=== PATIENT | male | born 1960 | race Two or more races ===

== ENCOUNTER 2019-01-05 13:55 | Inpatient (IN) | payer OTHER ==
[2019-01-05 18:31] VITALS: BMI 20.5
--- NOTE | 2019-01-05 19:07 | HP ---
COWS - Scale Resting Pulse: 0= [place] 80 or Below Sweatin= Chills/Flushing Restless Observation: 3= Extraneous Movement Pupil Size: 0= Normal to Room Light Bone or Joint Aches: 1= Mild Discomfort Runny Nose/ Eye Tearin= None GI Upset > 30mins: 0= None Tremor Observation: 2= Slight Tremor Visible Yawning Observation: 0= None Anxiety or Irritability: 2=Irritable/Anxious Goose Flesh Skin: 0=Smooth Skin COWS Score: 9 CIWA Score - Admission Criteria OASAS Guidelines: Admission for Medically Managed Detox: Requires at least one of the followin. CIWA greater than 12 2. Seizures within the past 24 hours 3. Delirium tremens within the past 24 hours 4. Hallucinations within the past 24 hours 5. Acute intervention needed for co occurring medical disorder 6. Acute intervention needed for co occurring psychiatric disorder 7. Severe withdrawal that cannot be handled at a lower level of care (continued vomiting, continued diarrhea, abnormal vital signs) requiring intravenous medication and/or fluids 8. Admission ROS [facility] Chief Complaint: detox heroin and cocaine Allergies/Adverse Reactions: Allergies Allergy/AdvReac Type Severity Reaction Status Date / Time No Known Allergies Allergy Verified 01/05/19 18:23 History of Present Illness: 58M with no significant PMHx presenting to [facility] for detox from heroin and cocaine. Taking heroin(IV) 10bags, speedballing with cocaine(IV) for 3ys. Last heroin, 2bags at ~0600. Cocaine(IV) 1gm ~$30, every 2d. Last cocaine was yesterday night. Uses clean needles, never shares. Denies bacteremia, abscesses , HepC, HIV. Distant MJ. Social EtOH. Denies benzo, tobacco. Started drugs at 25yo, on/off sobriety, with longest stretch for 3.5ys. Has had multiple detox- rehab([facility], [facility] 2011, etc). Never had methadone, suboxone clinics. Has been incarcerated multiple times for shoftlifting, serving short 90d sentences. Lives in [facility] [facility] with and son. 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 - Ebola screening Have you traveled outside of the country in the last 21 days: No (N) Have you had contact with anyone from an Ebola affected area: No Do you have a fever: No - Review of Systems Constitutional: Unintentional Wgt. Loss (20lbs in 2ys) EENT: denies: Blurred Vision, Double Vision, Difficulty Swallowing Respiratory: denies: Cough, Shortness of Breath, Productive cough Cardiac: denies: Chest Pain, Lightheadedness, Palpitations GI: denies: Abdominal Distended, Constipated, Diarrhea, Nausea, Vomiting : denies: Dysuria, Frequency Musculoskeletal: reports: Back Pain Neuro: denies: Headache, Seizure, Dizziness Psychiatric: reports: Orientated x3 Patient History - Patient Medical History Hx Asthma: No Hx Chronic Obstructive Pulmonary Disease (COPD): No Hx Cardiac Disorders: No Hx Hypertension: No Hx Seizures: No Hx Diabetes: No Hx Gastrointestinal Disorders: No Hx Genitourinary Disorders: No Hx Sexually Transmitted Disorders: No Hx Renal Disease (ESRD): No Hx Depression: No Hx Suicide Attempt: No Hx Schizophrenia: No - Patient Surgical History Past Surgical History: No Hx Neurologic Surgery: No Hx Cataract Extraction: No Hx Cardiac Surgery: No Hx Lung Surgery: No Hx Breast Surgery: No Hx Breast Biopsy: No Hx Abdominal Surgery: No Hx Appendectomy: No Hx Cholecystectomy: No Hx Genitourinary Surgery: No Hx Section: No - PPD History Date: 10/29/11 - Smoking Cessation Smoking history: Never smoked - Substance & Tx. History Hx Alcohol Use: Yes (social) Substance Use Type: Cocaine, Heroin, Marijuana, Opiates - Substances abused Heroin Substance route: Injection Frequency: Daily Amount used: 8 bags/ close to 100 dollars Age of first use: 25 Date of last use: 01/05/19 Cocaine Substance route: Injection Frequency: Daily Amount used: 3 bags Age of first use: 25 Date of last use: 01/05/19 Family Disease History - Family Disease History Other Family History: none Admission Physical Exam BHS - Vital Signs Vital Signs: Vital Signs - 24 hr 01/05/19 18:22 Temperature 100.6 F H Pulse Rate 79 Respiratory 16 Rate Blood Pressure 106/62 - Physical General Appearance: Yes: Thin, Anxious HEENTM: No: Pale Conjunctivae R, Pale Conjunctivae L, Scleral Ictenus R, Scleral Ictenus L, Thrush Respiratory: Yes: Chest Non-Tender, Lungs Clear, No Respiratory Distress, No Accessory Muscle Use Neck: Yes: Supple, Trachea in good position Cardiology: Yes: Regular Rate, S1, S2. No: Bradycardia, Tachycardia Abdominal: Yes: Soft. No: Distended, Guarding, Rebound, Tenderness Back: Yes: Normal Inspection Musculoskeletal: Yes: full range of Motion Extremities: Yes: Other (LUE with ventral forearm with firm indurated, nonTTP, nonerythematous blood vessel. RUE with ventral forearm with firm indurated, nonTTP, nonerythematous blood vessel) Neurological: Yes: Fully Oriented, Alert Integumentary: Yes: Dry, Warm Breathalyzer - Breathalyzer Breathalyzer: 0 Urine Drug Screen - Test Device Lot number: [id number] Expiration date: 09/29/20 - Control Is test valid?: Yes - Results Drug screen NEGATIVE: No Urine drug screen results: MARSHA-Cocaine, FEN-Fentanyl, MOP-Opiates, OXY-Oxycodone , MTD-Methadone Inpatient Rehab Admission - Rehab Decision to Admit Inpatient rehab admission?: No
--- NOTE | 2019-01-05 19:36 | PN ---
"Teaching Attending Note Name of Resident: Edward Adkins ATTENDING PHYSICIAN STATEMENT I saw and evaluated the patient. I reviewed the resident's note and discussed the case with the resident. I agree with the resident's findings and plan as documented. SUBJECTIVE:58 y.o. pt requesting detox from opiate use , reports IVDU 10 bags since age 25 , latest use this morning 2 bags , current symptoms as above. Cocaine : IVDU 1 gr every other day . denies prior abscess , OD . Intermittent sobriety , longest 3 1/2 years . denies other illicits or ETOH denies tobacco use OBJECTIVE: wnwd . COWS 9 Search Terms: denilson renteriado, 1960 Search Date: 01/05/2019 07:36:32 PM This report was requested by: Marlee Pringle | Reference #: [id number] There are no results for the search terms that you entered. Vital Signs - 24 hr 01/05/19 18:22 Temperature 100.6 F H Pulse Rate 79 Respiratory 16 Rate Blood Pressure 106/62 ASSESSMENT AND PLAN: Opioid dependence - Methadone detox . Cocaine dependence ."
[2019-01-05] MEDS ORDERED: IBUPROFEN 400 MG TABLET (FP) PO PRN (19:45)
[2019-01-05] MEDS ORDERED: MAGNESIUM HYDROX 2400MG/30ML ORAL SUSPENSION 30 ML CUP PO PRN (19:45)
[2019-01-05] MEDS ORDERED: METHADONE HCL 10 MG TABLET (FOR DETOX USE ONLY) PO ONE (19:45)
[2019-01-05] MEDS ORDERED: MAGNESIUM CITRATE 300 ML BOTTLE PO PRN (19:45)
[2019-01-05] MEDS ORDERED: MENTHOL/PHENOL 1 EACH UD MM PRN (19:45)
[2019-01-05] MEDS ORDERED: BISMUTH SUBSALICYLATE 524 MG/30 ML UD PO PRN (19:45)
[2019-01-05] MEDS ORDERED: METHOCARBAMOL 500 MG TABLET PO PRN (19:45)
[2019-01-05] MEDS ORDERED: MAG HYDROX/AL HYDROX/SIMETH 30 ML UNIT-DOSE CUP PO PRN (19:45)
[2019-01-05] MEDS ORDERED: cloNIDine HCL 0.1 MG TABLET PO PRN (19:45)
[2019-01-05] MEDS ORDERED: ACETAMINOPHEN 325 MG TABLET (FP) PO PRN ×2 (19:45)
[2019-01-05] MEDS: THIAMINE HCL 100 MG TABLET (FP) PO SCH (21:26)
[2019-01-05] MEDS: MELATONIN 5 MG TABLETS PO PRN (21:28)
[2019-01-05] MEDS: BACITRACIN/POLYMYXIN B SULFATE 15 GM TUBE TP SCH (21:29)
--- NOTE | 2019-01-05 23:08 | PN ---
BHS Progress Note Note: Abnormal EKG noted. Patient denies CP/SOB. Earlier HPI reviewed. Patient with hx Cocaine IV. Will repeat EKG in am.
[2019-01-06] MEDS ORDERED: METHADONE HCL 10 MG TABLET (FOR DETOX USE ONLY) ONE (09:57)
[2019-01-06] MEDS ORDERED: METHADONE HCL 5 MG TABLET (FOR DETOX USE ONLY) ONE (09:58)
[2019-01-06] MEDS ORDERED: METHADONE (DETOX) 20 MG, METHADONE (DETOX) 5 MG PO ONE (10:00)
[2019-01-06 10:22] LABS: HEMATOCRIT 29.7 % (35.4-49); MCH 28.6 pg (25.7-33.7); MCHC 33.6 g/dl (32.0-35.9); MEAN CELL VOLUME 85.1 fl (80-96); MEAN PLT VOLUME 8.1 fl (7.5-11.1); PLATELET COUNT 188 K/MM3 (134-434); RBC 3.49 M/mm3 (4.00-5.60); RDW 15.4 % (11.9-15.9); WHITE BLOOD COUNT 6.1 K/mm3 (4.0-10.0)
[2019-01-06] MEDS: BACITRACIN/POLYMYXIN B SULFATE 15 GM TUBE TP SCH ×2 (10:22→22:28)
[2019-01-06] MEDS: PRENATAL VITAMINS W/ FOLIC ACID TABLET (FP) PO SCH (10:23)
[2019-01-06] MEDS: SULFAMETHOXAZOLE/TRIMETHOPRIM 800MG/160MG D.S. TABLET PO SCH (10:23)
[2019-01-06 10:30] LABS: ALBUMIN 2.7 g/dl (3.4-5.0); ALK PHOS > 1000 U/L (45-117); ANION GAP 4 MMOL/L (8-16); BILIRUBIN,TOTAL 1.7 mg/dL (0.2-1); CHLORIDE 101 mmol/L (98-107); CO2 30 mmol/L (21-32); CREATININE 1.1 mg/dL (0.55-1.3); GLUCOSE,RANDOM 76 mg/dL (74-106); POTASSIUM 4.4 mmol/L (3.5-5.1); SGOT/AST 49 U/L (15-37); SGPT/ALT 38 U/L (13-61); SODIUM 135 mmol/L (136-145); TOT PROT 8.9 g/dl (6.4-8.2)
--- NOTE | 2019-01-06 11:34 | PN ---
BHS COWS - Scale Resting Pulse: 0= [place] 80 or Below Sweatin= Chills/Flushing Restless Observation: 1= Difficult to Sit Still Pupil Size: 0= Normal to Room Light Bone or Joint Aches: 4=Acute Joint/Muscle Pain Runny Nose/ Eye Tearin= None GI Upset > 30mins: 0= None Tremor Observation of Outstretched Hands: 0= None Yawning Observation: 1= 1-2x During Session Anxiety or Irritability: 2=Irritable/Anxious Goose Flesh Skin: 0=Smooth Skin COWS Score: 9 S Progress Note (SOAP) Subjective: c/o anxiety, irritability, sweats, and muscle aches. Objective: 01/06/19 11:34 Vital Signs 01/06/19 01/06/19 06:00 09:13 Temperature 99.0 F 97.3 F L Pulse Rate 78 70 Respiratory 16 18 Rate Blood Pressure 123/61 106/59 L Lab Results WBC 6.1 K/mm3 (4.0-10.0) 01/06/19 08:00 RBC 3.49 M/mm3 (4.00-5.60) L 01/06/19 08:00 Hgb 10.0 GM/dL (11.7-16.9) L 01/06/19 08:00 Hct 29.7 % (35.4-49) L D 01/06/19 08:00 MCV 85.1 fl (80-96) 01/06/19 08:00 MCHC 33.6 g/dl (32.0-35.9) 01/06/19 08:00 RDW 15.4 % (11.9-15.9) D 01/06/19 08:00 Plt Count 188 K/MM3 (134-434) 01/06/19 08:00 Sodium 135 mmol/L (136-145) L 01/06/19 08:00 Potassium 4.4 mmol/L (3.5-5.1) 01/06/19 08:00 Chloride 101 mmol/L (98-107) 01/06/19 08:00 Carbon Dioxide 30 mmol/L (21-32) 01/06/19 08:00 Anion Gap 4 MMOL/L (8-16) L 01/06/19 08:00 BUN 16.0 mg/dL (7-18) 01/06/19 08:00 Creatinine 1.1 mg/dL (0.55-1.3) 01/06/19 08:00 Random Glucose 76 mg/dL (74-106) 01/06/19 08:00 Calcium 9.0 mg/dL (8.5-10.1) 01/06/19 08:00 Labs noted. Assessment: 01/06/19 11:34 AOX3, in no acute respiratory distress. Full ROM, ambulating in the unit. Withdrawal symptoms. Plan: continue detox.
--- NOTE | 2019-01-06 15:09 | PN ---
BHS Progress Note Note: Pt's repeat EKG is normal. No other c/o noted.
[2019-01-06] MEDS: FERROUS SO4 325 MG TABLET (FP) PO SCH (17:05)
[2019-01-06] MEDS: THIAMINE HCL 100 MG TABLET (FP) PO SCH (22:28)
[2019-01-06] MEDS: MELATONIN 5 MG TABLETS PO PRN (22:29)
[2019-01-07] MEDS: FERROUS SO4 325 MG TABLET (FP) PO SCH ×3 (07:12→17:35)
[2019-01-07] MEDS ORDERED: METHADONE HCL 10 MG TABLET (FOR DETOX USE ONLY) PO ONE (10:00)
[2019-01-07] MEDS: PRENATAL VITAMINS W/ FOLIC ACID TABLET (FP) PO SCH (10:33)
[2019-01-07] MEDS: SULFAMETHOXAZOLE/TRIMETHOPRIM 800MG/160MG D.S. TABLET PO SCH (10:33)
[2019-01-07] MEDS: BACITRACIN/POLYMYXIN B SULFATE 15 GM TUBE TP SCH ×2 (10:34→21:43)
[2019-01-07] MEDS: hydrOXYzine PAMOATE 25 MG CAPSULE (FP) PO PRN ×2 (10:37→21:42)
[2019-01-07] MEDS: ASCORBIC ACID 500 MG TABLET (FP) PO SCH (11:00)
--- NOTE | 2019-01-07 16:24 | PN ---
BHS COWS - Scale Resting Pulse: 0= [place] 80 or Below Sweatin= Chills/Flushing Restless Observation: 1= Difficult to Sit Still Pupil Size: 0= Normal to Room Light Bone or Joint Aches: 1= Mild Discomfort Runny Nose/ Eye Tearin= Runny Nose/Eyes GI Upset > 30mins: 2= Nausea/Diarrhea Tremor Observation of Outstretched Hands: 2= Slight Tremor Visible Yawning Observation: 0= None Anxiety or Irritability: 2=Irritable/Anxious Goose Flesh Skin: 0=Smooth Skin COWS Score: 11 BHS Progress Note (SOAP) Subjective: Runny nose, anxious, interrupted sleep, sweating, chills, tremor Objective: 01/07/19 16:20 Last Vital Signs Temp Pulse Resp BP Pulse Ox 98.8 F 65 16 118/64 01/07/19 13:10 01/07/19 13:10 01/07/19 13:10 01/07/19 13:10 Laboratory Tests 01/06/19 01/06/19 01/06/19 08:00 08:00 08:00 WBC 6.1 RBC 3.49 L Hgb 10.0 L Hct 29.7 L D MCV 85.1 MCH 28.6 MCHC 33.6 RDW 15.4 D Plt Count 188 MPV 8.1 Sodium 135 L Potassium 4.4 Chloride 101 Carbon Dioxide 30 Anion Gap 4 L BUN 16.0 Creatinine 1.1 Est GFR (CKD-EPI)AfAm 86.52 Est GFR (CKD-EPI)NonAf 74.65 Random Glucose 76 Calcium 9.0 Total Bilirubin 1.7 H AST 49 H ALT 38 Alkaline Phosphatase > 1000 H Total Protein 8.9 H Albumin 2.7 L RPR Titer Nonreactive Labs reviewed: mild anemia noted; abnormal LFTs (total bilirubin, AST, Alk phos , total protein) Assessment: 01/07/19 16:23 Withdrawal sxs Noted with anemia and elevated LFTs Plan: Continue detox Encouraged PO water intake Anemia: continue iron supplement Elevated LFTs: could be r/t IVDU, repeat CMP
--- NOTE | 2019-01-07 17:16 | EKG ---
Test Reason : Blood Pressure : / mmHG Vent. Rate : 065 BPM Atrial Rate : 065 BPM P-R Int : 138 ms QRS Dur : 088 ms QT Int : 432 ms P-R-T Axes : -15 000 020 degrees QTc Int : 449 ms NORMAL SINUS RHYTHM NORMAL ECG WHEN COMPARED WITH ECG OF 05-JAN-2019 20:58, SINUS RHYTHM HAS REPLACED ECTOPIC ATRIAL RHYTHM ST NO LONGER DEPRESSED IN INFERIOR LEADS Confirmed by TRAMAINE AUGUSTE MD ([id number]) on 01/07/2019 5:15:49 PM Referred By: Confirmed By:TRAMAINE AUGUSTE MD
--- NOTE | 2019-01-07 17:18 | EKG ---
Test Reason : Blood Pressure : / mmHG Vent. Rate : 073 BPM Atrial Rate : 073 BPM P-R Int : 160 ms QRS Dur : 086 ms QT Int : 376 ms P-R-T Axes : 262 023 003 degrees QTc Int : 414 ms UNUSUAL P AXIS, POSSIBLE ECTOPIC ATRIAL RHYTHM ABNORMAL ECG NO PREVIOUS ECGS AVAILABLE Confirmed by TRAMAINE AUGUSTE MD ([id number]) on 01/07/2019 5:17:59 PM Referred By: Confirmed By:TRAMAINE AUGUSTE MD
[2019-01-07] MEDS: THIAMINE HCL 100 MG TABLET (FP) PO SCH (21:42)
[2019-01-07] MEDS: MELATONIN 5 MG TABLETS PO PRN (21:42)
[2019-01-08] MEDS: FERROUS SO4 325 MG TABLET (FP) PO SCH ×3 (08:10→18:01)
--- NOTE | 2019-01-08 09:36 | PN ---
BHS COWS - Scale Resting Pulse: 0= [place] 80 or Below Sweatin= Chills/Flushing Restless Observation: 1= Difficult to Sit Still Pupil Size: 1= Pupils >than Normal Bone or Joint Aches: 1= Mild Discomfort Runny Nose/ Eye Tearin= Runny Nose/Eyes GI Upset > 30mins: 2= Nausea/Diarrhea Tremor Observation of Outstretched Hands: 1= Tremor [place], Not Seen Yawning Observation: 0= None Anxiety or Irritability: 0= None Goose Flesh Skin: 0=Smooth Skin COWS Score: 9 BHS Progress Note (SOAP) Subjective: Patient having mild to moderate withdrawal symptoms. Objective: 01/08/19 09:36 BP:97/53 P:58 R:17 T:98.1 Laboratory 01/06/19 01/06/19 01/06/19 08:00 08:00 08:00 WBC 6.1 K/mm3 K/mm3 (4.0-10.0) RBC 3.49 M/mm3 L M/mm3 (4.00-5.60) Hgb 10.0 GM/dL L GM/dL (11.7-16.9) Hct 29.7 % L D % (35.4-49) MCV 85.1 fl fl (80-96) MCH 28.6 pg pg (25.7-33.7) MCHC 33.6 g/dl g/dl (32.0-35.9) RDW 15.4 % D % (11.9-15.9) Plt Count 188 K/MM3 K/MM3 (134-434) MPV 8.1 fl fl (7.5-11.1) Sodium 135 mmol/L L mmol/L (136-145) Potassium 4.4 mmol/L mmol/L (3.5-5.1) Chloride 101 mmol/L mmol/L (98-107) Carbon Dioxide 30 mmol/L mmol/L (21-32) Anion Gap 4 MMOL/L L MMOL/L (8-16) BUN 16.0 mg/dL mg/dL (7-18) Creatinine 1.1 mg/dL mg/dL (0.55-1.3) Est GFR (CKD-EPI)AfAm 86.52 Est GFR (CKD-EPI)NonAf 74.65 Random Glucose 76 mg/dL mg/dL (74-106) Calcium 9.0 mg/dL mg/dL (8.5-10.1) Total Bilirubin 1.7 mg/dL H mg/dL (0.2-1) AST 49 U/L H U/L (15-37) ALT 38 U/L U/L (13-61) Alkaline Phosphatase > 1000 U/L H U/L (45-117) Total Protein 8.9 g/dl H g/dl (6.4-8.2) Albumin 2.7 g/dl L g/dl (3.4-5.0) RPR Titer Nonreactive (NONREACTIVE) 01/08/19 09:38 Assessment: 01/08/19 09:38 1. Opioid Dependence with uncomplicated withdrawals Plan: 1. Patient encouraged to increase PO fluids and intake. Encouraged to increase activity.
[2019-01-08] MEDS ORDERED: METHADONE (DETOX) 10 MG, METHADONE (DETOX) 5 MG PO ONE (10:00)
[2019-01-08] MEDS: SULFAMETHOXAZOLE/TRIMETHOPRIM 800MG/160MG D.S. TABLET PO SCH (10:10)
[2019-01-08] MEDS: PRENATAL VITAMINS W/ FOLIC ACID TABLET (FP) PO SCH (10:11)
[2019-01-08] MEDS ORDERED: METHADONE HCL 5 MG TABLET (FOR DETOX USE ONLY) ONE (10:12)
[2019-01-08] MEDS ORDERED: METHADONE HCL 10 MG TABLET (FOR DETOX USE ONLY) ONE (10:12)
[2019-01-08] MEDS: BACITRACIN/POLYMYXIN B SULFATE 15 GM TUBE TP SCH ×2 (10:15→22:44)
[2019-01-08] MEDS: ASCORBIC ACID 500 MG TABLET (FP) PO SCH (10:15)
[2019-01-08 13:03] LABS: ALBUMIN 2.9 g/dl (3.4-5.0); ALK PHOS > 1000 U/L (45-117); ANION GAP 4 MMOL/L (8-16); BILIRUBIN,TOTAL 1.2 mg/dL (0.2-1); BLOOD UREA NITROGEN 20.7 mg/dL (7-18); CALCIUM 9.1 mg/dL (8.5-10.1); CHLORIDE 97 mmol/L (98-107); CO2 30 mmol/L (21-32); CREATININE 1.3 mg/dL (0.55-1.3); GLUCOSE,RANDOM 79 mg/dL (74-106); POTASSIUM 4.9 mmol/L (3.5-5.1); SGOT/AST 58 U/L (15-37); SGPT/ALT 46 U/L (13-61); SODIUM 132 mmol/L (136-145); TOT PROT 9.9 g/dl (6.4-8.2)
[2019-01-08] MEDS: hydrOXYzine PAMOATE 25 MG CAPSULE (FP) PO PRN ×2 (13:12→20:45)
[2019-01-08] MEDS: THIAMINE HCL 100 MG TABLET (FP) PO SCH (22:44)
--- NOTE | 2019-01-09 09:00 | CONSULT ---
[facility] Psychiatric Consult - Data Date of interview: 01/09/19 Psychiatric History: Patient was approached by handbook writer at bedside. He told handbook writer :"I don't want to see psychiatrist, I'm leaving tomorrow"
[2019-01-09] MEDS ORDERED: METHADONE HCL 10 MG TABLET (FOR DETOX USE ONLY) PO ONE (10:00)
[2019-01-09] MEDS: ASCORBIC ACID 500 MG TABLET (FP) PO SCH (10:22)
[2019-01-09] MEDS: SULFAMETHOXAZOLE/TRIMETHOPRIM 800MG/160MG D.S. TABLET PO SCH (10:22)
[2019-01-09] MEDS: PRENATAL VITAMINS W/ FOLIC ACID TABLET (FP) PO SCH (10:22)
[2019-01-09] MEDS: BACITRACIN/POLYMYXIN B SULFATE 15 GM TUBE TP SCH ×2 (10:23→22:41)
[2019-01-09] MEDS: FERROUS SO4 325 MG TABLET (FP) PO SCH ×3 (10:23→18:25)
[2019-01-09] MEDS: hydrOXYzine PAMOATE 25 MG CAPSULE (FP) PO PRN (10:25)
--- NOTE | 2019-01-09 10:46 | PN ---
BHS COWS - Scale Resting Pulse: 0= [place] 80 or Below Sweatin= No chills or Flushing Restless Observation: 1= Difficult to Sit Still Pupil Size: 1= Pupils >than Normal Bone or Joint Aches: 1= Mild Discomfort Runny Nose/ Eye Tearin= Nasal Congestion GI Upset > 30mins: 1= Stomach Cramp Tremor Observation of Outstretched Hands: 1= Tremor [place], Not Seen Yawning Observation: 1= 1-2x During Session Anxiety or Irritability: 2=Irritable/Anxious Goose Flesh Skin: 0=Smooth Skin COWS Score: 9 BHS Progress Note (SOAP) Subjective: alert,irritable,anxious,interrupted sleep,pain in the body Objective: 01/09/19 10:45 Vital Signs Temperature 98.1 F 01/09/19 09:44 Pulse Rate 65 01/09/19 09:44 Respiratory Rate 16 01/09/19 09:44 Blood Pressure 109/57 L 01/09/19 09:44 O2 Sat by Pulse Oximetry (%) Assessment: 01/09/19 10:45 withdrawal symptom Plan: continue detox methadone regimen,discharge in am
[2019-01-09] MEDS: THIAMINE HCL 100 MG TABLET (FP) PO SCH (22:40)
[2019-01-10] MEDS ORDERED: METHADONE HCL 5 MG TABLET (FOR DETOX USE ONLY) PO ONE (06:00)
[2019-01-10] MEDS: FERROUS SO4 325 MG TABLET (FP) PO SCH (07:09)
[2019-01-10 07:38] VITALS: BP 114/60; PULSE 72; TEMP 98.1
--- NOTE | 2019-01-10 09:18 | DS ---
[facility] Detox Discharge Summary Admission Date: 01/05/19 Discharge Date: 01/10/19 - History Present History: Opioid Dependence - Physical Exam Results Vital Signs: Vital Signs Temperature 98.1 F 01/10/19 07:38 Pulse Rate 72 01/10/19 07:38 Respiratory Rate 17 01/10/19 07:38 Blood Pressure 114/60 01/10/19 07:38 O2 Sat by Pulse Oximetry (%) Pertinent Admission Physical Exam Findings: pt arrived in withdrawals Laboratory Tests 01/06/19 01/06/19 01/06/19 08:00 08:00 08:00 WBC 6.1 RBC 3.49 L Hgb 10.0 L Hct 29.7 L D MCV 85.1 MCH 28.6 MCHC 33.6 RDW 15.4 D Plt Count 188 MPV 8.1 Sodium 135 L Potassium 4.4 Chloride 101 Carbon Dioxide 30 Anion Gap 4 L BUN 16.0 Creatinine 1.1 Est GFR (CKD-EPI)AfAm 86.52 Est GFR (CKD-EPI)NonAf 74.65 Random Glucose 76 Calcium 9.0 Total Bilirubin 1.7 H AST 49 H ALT 38 Alkaline Phosphatase > 1000 H Total Protein 8.9 H Albumin 2.7 L RPR Titer Nonreactive 01/08/19 08:20 WBC RBC Hgb Hct MCV MCH MCHC RDW Plt Count MPV Sodium 132 L Potassium 4.9 Chloride 97 L Carbon Dioxide 30 Anion Gap 4 L BUN 20.7 H Creatinine 1.3 Est GFR (CKD-EPI)AfAm 70.69 Est GFR (CKD-EPI)NonAf 60.99 Random Glucose 79 Calcium 9.1 Total Bilirubin 1.2 H AST 58 H ALT 46 Alkaline Phosphatase > 1000 H Total Protein 9.9 H Albumin 2.9 L RPR Titer today pt is aaox3 ambulating no acute distress no s/s of withdrawals - Treatment Hospital Course: Detox Protocol Followed, Detoxed Safely, Responded well, Discharged Condition Good, Rehab Referral Accepted Patient has Accepted a Rehab Referral to: pt referred to [facility] inpatient rehab - Medication Discharge Medications: Ambulatory Orders NK [No Known Home Medication] 01/05/19 - Diagnosis (1) Opioid dependence Current Visit: Yes Status: Acute - AMA Did Patient Leave Against Medical Advice: No
== END 2019-01-10 09:10 | disposition home or self-care (01) | DRG 773 ==
LOC: YASAS 13:55 → Y6N 20:17
PROVIDERS: ADMIT Surgery; ATTEND Surgery
PROC: HZ2ZZZZ Detoxification Services for Substance Abuse Treatment (ICD-10-PCS; principal; 2019-01-05)
DX: F11.23 Opioid dependence with withdrawal (principal); D64.9 Anemia, unspecified; R94.5 Abnormal results of liver function studies; R94.31 Abnormal electrocardiogram [ECG] [EKG]; R00.0 Tachycardia, unspecified
CPT/HCPCS: 36415; 80053; 85027; 86593; 93005; 93010

== ENCOUNTER 2022-10-20 12:07 | Inpatient (IN) | payer OTHER ==
[2022-10-20 13:17] VITALS: BMI 21.9
[2022-10-20] MEDS ORDERED: DICYCLOMINE HCL 10 MG CAPSULE PO PRN (15:13)
[2022-10-20] MEDS ORDERED: BENZOCAINE/MENTHOL (CHLORASEPTIC ) LOZENGE MM PRN (15:13)
[2022-10-20] MEDS ORDERED: NICOTINE 10 MG CARTRIDGE (INHALER) IH PRN (15:13)
[2022-10-20] MEDS ORDERED: NALOXONE HCL (KLOXXADO) 8 MG SPRAY NS PRN (15:13)
[2022-10-20] MEDS ORDERED: POLYETHYLENE GLYCOL (HEALTHYLAX) 3350 17 GM PACKET PO PRN (15:13)
[2022-10-20] MEDS ORDERED: BENZONATATE 200 MG CAPSULE PO PRN (15:13)
[2022-10-20] MEDS ORDERED: guaiFENesin 600 MG TABLET.ER (FP) PO PRN (15:13)
[2022-10-20] MEDS ORDERED: ACETAMINOPHEN 325 MG TABLET (FP) PO PRN (15:13)
[2022-10-20] MEDS ORDERED: MAG HYDROX/AL HYDROX/SIMETH 30 ML UNIT-DOSE CUP PO PRN (15:13)
[2022-10-20] MEDS ORDERED: AMMONIUM LACTATE 12% LOTION 225 GM BOTTLE TP PRN (15:13)
[2022-10-20] MEDS ORDERED: NALOXONE HCL 0.4 MG/ML VIAL IM PRN (15:13)
[2022-10-20] MEDS ORDERED: IBUPROFEN 400 MG TABLET (FP) PO PRN (15:13)
[2022-10-20] MEDS ORDERED: LOPERAMIDE HCL 2 MG CAPSULE PO PRN (15:13)
[2022-10-20] MEDS ORDERED: MAGNESIUM HYDROX 2400MG/30ML ORAL SUSPENSION 30 ML CUP PO PRN (15:13)
[2022-10-20] MEDS ORDERED: COLLOIDAL OATMEAL 1 BAR EACH TP PRN (15:13)
[2022-10-20] MEDS ORDERED: BISMUTH SUBSALICYLATE 262 MG/15 ML BTL PO PRN (15:13)
[2022-10-20] MEDS ORDERED: ONDANSETRON *ODT* 4 MG TABLET SL PRN (15:13)
[2022-10-20] MEDS ORDERED: IBUPROFEN 600 MG TABLET (FP) PO PRN (15:13)
[2022-10-20] MEDS: hydrOXYzine PAMOATE 25 MG CAPSULE (FP) PO PRN (17:15)
[2022-10-20] MEDS: THIAMINE HCL 100 MG TABLET (FP) PO SCH (22:20)
[2022-10-20] MEDS: MELATONIN 5 MG TABLETS PO SCH (22:20)
[2022-10-21] MEDS ORDERED: methaDONE HCL 10 MG TABLET (FOR DETOX USE ONLY) PO ONE ×2 (08:24→10:00)
[2022-10-21] MEDS ORDERED: cloNIDine HCL 0.1 MG TABLET PO PRN (08:24)
[2022-10-21] MEDS: hydrOXYzine PAMOATE 25 MG CAPSULE (FP) PO PRN (09:55)
[2022-10-21] MEDS: PRENATAL VITAMINS W/ FOLIC ACID TABLET (FP) PO SCH (09:55)
[2022-10-21 11:43] LABS: HEMATOCRIT 43.7 % (35.4-49); HEMOGLOBIN 14.4 GM/dL (11.7-16.9); MCH 29.1 pg (25.7-33.7); MCHC 32.9 g/dl (32.0-35.9); MEAN CELL VOLUME 88.4 fl (80-96); MEAN PLT VOLUME 8.3 fl (7.5-11.1); PLATELET COUNT 154 10^3/uL (134-434); RBC 4.94 M/mm3 (4.00-5.60); RDW 14.3 % (11.9-15.9); WHITE BLOOD COUNT 4.8 K/mm3 (4.0-10.0)
[2022-10-21 11:47] LABS: POTASSIUM 4.1 mmol/L (3.5-5.1)
[2022-10-21 11:51] LABS: BLOOD UREA NITROGEN 19.7 mg/dL (7-18); CALCIUM 9.6 mg/dL (8.5-10.1)
[2022-10-21 11:52] LABS: ALBUMIN 3.9 g/dl (3.4-5.0)
[2022-10-21 11:55] LABS: CREATININE 1.1 mg/dL (0.55-1.3)
[2022-10-21 11:56] LABS: BILIRUBIN,TOTAL 2.3 mg/dL (0.2-1); TOT PROT 8.6 g/dl (6.4-8.2)
[2022-10-21] MEDS: THIAMINE HCL 100 MG TABLET (FP) PO SCH (22:14)
[2022-10-21] MEDS: diazePAM 5 MG TABLET PO PRN (22:16)
[2022-10-21] MEDS: MELATONIN 5 MG TABLETS PO SCH (22:16)
[2022-10-22] MEDS: PRENATAL VITAMINS W/ FOLIC ACID TABLET (FP) PO SCH (10:13)
[2022-10-22] MEDS: hydrOXYzine PAMOATE 25 MG CAPSULE (FP) PO PRN (10:13)
[2022-10-22] MEDS: diazePAM 5 MG TABLET PO PRN ×2 (14:00→22:25)
[2022-10-22] MEDS: MELATONIN 5 MG TABLETS PO SCH (22:23)
[2022-10-22] MEDS: THIAMINE HCL 100 MG TABLET (FP) PO SCH (22:23)
[2022-10-23] MEDS ORDERED: methaDONE HCL 10 MG TABLET (FOR DETOX USE ONLY) PO ONE (10:00)
[2022-10-23] MEDS: hydrOXYzine PAMOATE 25 MG CAPSULE (FP) PO PRN (10:24)
[2022-10-23] MEDS: PRENATAL VITAMINS W/ FOLIC ACID TABLET (FP) PO SCH (10:24)
[2022-10-23 10:51] LABS: POTASSIUM 4.1 mmol/L (3.5-5.1)
[2022-10-23 11:03] LABS: CALCIUM 9.1 mg/dL (8.5-10.1)
[2022-10-23 11:04] LABS: ALBUMIN 3.4 g/dl (3.4-5.0); BLOOD UREA NITROGEN 23.7 mg/dL (7-18)
[2022-10-23 11:08] LABS: BILIRUBIN,TOTAL 1.4 mg/dL (0.2-1); TOT PROT 7.5 g/dl (6.4-8.2)
[2022-10-23] MEDS: diazePAM 5 MG TABLET PO PRN ×2 (13:33→22:51)
[2022-10-23] MEDS: THIAMINE HCL 100 MG TABLET (FP) PO SCH (22:52)
[2022-10-23] MEDS: MELATONIN 5 MG TABLETS PO SCH (22:52)
[2022-10-24] MEDS: PRENATAL VITAMINS W/ FOLIC ACID TABLET (FP) PO SCH (10:26)
[2022-10-24] MEDS: diazePAM 5 MG TABLET PO PRN ×3 (12:10→22:25)
[2022-10-24] MEDS: THIAMINE HCL 100 MG TABLET (FP) PO SCH (22:25)
[2022-10-24] MEDS: MELATONIN 5 MG TABLETS PO SCH (22:25)
[2022-10-24] MEDS: hydrOXYzine PAMOATE 25 MG CAPSULE (FP) PO PRN (22:25)
[2022-10-25] MEDS ORDERED: methaDONE HCL 10 MG TABLET (FOR DETOX USE ONLY) PO ONE (10:00)
[2022-10-25] MEDS: hydrOXYzine PAMOATE 25 MG CAPSULE (FP) PO PRN ×2 (10:39→23:46)
[2022-10-25] MEDS: PRENATAL VITAMINS W/ FOLIC ACID TABLET (FP) PO SCH (10:39)
[2022-10-25] MEDS ORDERED: diazePAM 5 MG TABLET PO ONE (14:03)
[2022-10-25 20:48] VITALS: PULSE 84; RESP 18
[2022-10-25] MEDS: MELATONIN 5 MG TABLETS PO SCH (22:53)
[2022-10-25] MEDS: THIAMINE HCL 100 MG TABLET (FP) PO SCH (22:54)
[2022-10-26] MEDS: hydrOXYzine PAMOATE 25 MG CAPSULE (FP) PO PRN (05:28)
[2022-10-26 06:30] VITALS: BP 112/63; TEMP 97.6
== END 2022-10-26 09:53 | disposition home or self-care (01) | DRG 773 ==
LOC: YASAS 12:07 → Y6N 15:11
PROVIDERS: ADMIT Allergy & Immunology; ATTEND Surgery
PROC: HZ2ZZZZ Detoxification Services for Substance Abuse Treatment (ICD-10-PCS; principal; 2022-10-20)
DX: F11.23 Opioid dependence with withdrawal (principal); R74.8 Abnormal levels of other serum enzymes
CPT/HCPCS: 36415; 80053; 85027; 86780; 87635